=== PATIENT | female | born 1940 | race Caucasian/White ===

== ENCOUNTER → 2016-09-03 | Day surgery (SDC) | payer MEDICARE, OTHER ==
[~2016-09-03] VITALS: Ht 165.1 cm; Wt 74.8 kg
[~2016-09-03] MED LIST: ALDACTONE25 MG PO; ASPIRIN LO-DOSE81 MG PO; FOLIC ACID1 MG PO; GLUCOPHAGE500 MG PO; HYDRODIURIL25 MG PO; IMDUR60 MG PO; LEVOTHROID(SYN75 MCG PO; LOPRESSOR25 MG PO; NORCO 5-325 TA1 EACH PO; OMEGA PLUS PO; PRAVACHOL40 MG PO; PRINIVIL (ZESTR20 MG PO
--- NOTE | ~2016-09-03 | OR ---
PATIENT'S NAME: SIMRAN PARR [facility] AGE: 75 Y [address] ROOM: [place] [address] LOCATION: [facility] [place] ADMIT DATE: 09/03/2016 OR/Procedure Report DISCHARGE DATE: FAMILY PHYSICIAN: Sowmya Syed MD ATTENDING PHYSICIAN: Jett Hines SURGEON: Jett Hines MD DIP LUBE OPERATOR: Jeanine Patterson, Paper Cone Grader 3. DATE OF PROCEDURE: 09/03/2016 PREOPERATIVE DIAGNOSIS: Infiltrating ductal carcinoma, right breast, upper outer quadrant. POSTOPERATIVE DIAGNOSES: 1. Infiltrating ductal carcinoma, right breast, upper outer quadrant. 2. [place] lymph node. PROCEDURES PERFORMED: 1. 5 mL Lymphazurin blue dye periareolar right breast intradermal injection for lymphoscintigraphy. 2. Right axillary sentinel lymph node biopsy. 3. Right breast partial mastectomy with re-excision of lumpectomy cavity and marking of outer margins. INDICATIONS: The patient is a pleasant 75-year-old young lady, recently noticed a mass, had architectural distortion on mammograms, about a 1.5 cm in size. In the outpatient setting, I did a core needle biopsy of the 10 o'clock mass and it came back infiltrating ductal carcinoma. We discussed the treatment options. She elected to do a lumpectomy and sentinel lymph node biopsy, and agreed adjuvant radiation therapy as well as possible chemo hormonal therapy. DESCRIPTION OF PROCEDURE: After informed consent, the patient was taken to the operating room, and after general endotracheal anesthesia, the patient's right periareolar location was identified. We prepped with alcohol and injected 5 mL of Lymphazurin blue dye. We did 5 minute massage. We then prepped and draped the right breast and axilla into a sterile field. We did a time-out. We confirmed the patient, planned procedure, and administration of preop antibiotics. We injected local anesthetic, made a small incision in the inferior hairline of the right axilla using NeoGamma detector to identify radioactive hot spot. Minimal tracing of blue dye was noted, but there was 1 radioactive spot with a count of 400. There was 1 lymph node encountered. We excised it. We then did background checks. They were less than 10% residual. There was no other clinically palpable adenopathy. We then closed the wound with subcutaneous 3-0 Vicryl and subcuticular 4-0 Vicryl. We then proceeded to the right breast partial mastectomy/lumpectomy. We palpated the right PATIENT'S NAME: SIMRAN PARR [facility] AGE: 75 Y [address] ROOM: [place], [place] [address] LOCATION: [facility] [place] ADMIT DATE: 09/03/2016 OR/Procedure Report DISCHARGE DATE: FAMILY PHYSICIAN: Sowmya Syed MD ATTENDING PHYSICIAN: Jett Hines breast at 10 o'clock position. We did a 3 cm incision, carried down into the breast parenchyma. We placed Allis clamp on the palpable abnormality and we did excision into normal tissue circumferentially. We marked the anterior and lateral margins. Due to her dense fibrocystic tissue, we went ahead and did an another circumferential margin around the borders and marked and placed a stitch on the outer aspect which would be the new margin. We then cauterized for hemostasis. Injected remaining local anesthetic. We closed the subcutaneous tissue with 3-0 Vicryl and the skin with subcuticular 4-0 Vicryl. Steri-Strips and sterile dressings applied. The patient tolerated the procedure well and transferred to recovery room in stable condition. JETT HINES MD WTS/modl /[id number] d: 09/03/16 1126 t: 09/03/16 1540, OPERATIVE SUMMARY
== END | disposition disaster alternative care site (69) ==
LOC: GOPD 08-27 → GSDC 06:28 → GOPD 07:00
PROC: 07B50ZX Excision of Right Axillary Lymphatic, Open Approach, Diagnostic (ICD-10-PCS; principal; 2016-09-03)
PROC: 0HBT0ZZ Excision of Right Breast, Open Approach (ICD-10-PCS; 2016-09-03)
DX: C50.411 Malignant neoplasm of upper-outer quadrant of right female breast (principal); M19.90 Unspecified osteoarthritis, unspecified site; E11.9 Type 2 diabetes mellitus without complications; I25.10 Atherosclerotic heart disease of native coronary artery without angina pectoris; I10 Essential (primary) hypertension; E78.00 Pure hypercholesterolemia, unspecified; E78.5 Hyperlipidemia, unspecified; E03.9 Hypothyroidism, unspecified; G89.29 Other chronic pain; M54.9 Dorsalgia, unspecified; Z95.1 Presence of aortocoronary bypass graft; Z98.890 Other specified postprocedural states; Z98.41 Cataract extraction status, right eye; Z98.42 Cataract extraction status, left eye; Z90.710 Acquired absence of both cervix and uterus; Z79.899 Other long term (current) drug therapy; Z79.82 Long term (current) use of aspirin; Z88.8 Allergy status to other drugs, medicaments and biological substances
CPT/HCPCS: A9520; J0690; J1100; J2001; J2405; J3010; J7030; Q9968